=== PATIENT | female | born 1980 | race Caucasian/White ===

== ENCOUNTER 2017-11-23 09:11 | Inpatient (IN) ==
--- NOTE | 2017-11-23 09:43 | ED ---
History of Present Illness Primary Care Physician: Gustabo Aguero History of Present Illness: 37-year-old 2 para 0 EAB 1 at 39 weeks gestation who is a patient of Susy Doan and reports rupture membranes this morning at 6 AM. She has had increasing contractions since that time. She denies bleeding. She reports an uncomplicated course. She is GBS negative. Review of Systems All other systems reviewed negative except as stated in HPI PMFSH - Medical / Surgical Hx Neg / Unobtainable Medical Problems Denied: Yes - Surgical History Surgical History: Surgical History (Last Updated 11/23/17 @ 09:40 by Ford Zhou MD) H/O breast augmentation H/O dilation and curettage History of appendectomy Medications and Allergies Allergies Allergy/AdvReac Type Severity Reaction Status Date / Time No Known Allergies Allergy Uncoded 03/25/12 10:00 Exam Vital signs: Vital Signs 11/23/17 09:30 Pulse Rate 72 Blood Pressure 102/89 Narrative: GENERAL: Well-nourished, well-developed patient. SKIN: Warm and dry. HEAD: Normocephalic and atraumatic. EYES: No scleral icterus. No injection or drainage. ENT: No nasal drainage noted. Mucous membranes pink. Airway patent. NECK: Supple, trachea midline. No JVD. CARDIOVASCULAR: Regular rate and rhythm without murmurs, gallops, or rubs. RESPIRATORY: Breath sounds equal bilaterally. No accessory muscle use. ABDOMEN/GI: Abdomen soft, non-tender, bowel sounds present, no rebound, no guarding Gravid to [-] weeks size Fundal Height: [-] GENITOURINARY: External Genitalia: intact and normal in appearance BUS glands: [-] Cervix: [-] Dilatation: [-2] Effacement: [-100] Station: [-2-] Presentation: [Vertex-] Membranes: [ruptured] Uterine Contractions: [Every 2-3-] FHT's: Category: [2-] Baseline: [-] Reactive: [-] Variability: [Moderate] Decels: [Variable-] EXTREMITIES: No cyanosis or edema. BACK: Nontender without obvious deformity. No CVA tenderness. NEUROLOGICAL: Awake and alert. Motor and sensory grossly within normal limits. Five out of 5 muscle strength in all muscle groups. Normal speech. Assessment and Plan - Plan Assessment: Primigravida in early active labor, category 2 heart rate Plan: Admit for labor management Discharge Plan - Discharge Disposition Patient Disposition: 30 Still Patient - Discharge Condition Condition: Good - Physicians Team ED Provider: Ford Zhou Primary Care Provider: Gustabo Aguero - Rxs /Orders / Referrals /Forms Referrals: Gustabo Aguero MD [Primary Care Provider] - See Instructions - Discharge Instructions Print Language: Macedonian
[2017-11-23] MEDS ORDERED: fentaNYL Citrate Inj 100 MCG/2 ML Ampul IV.PUSH PRN ×2 (09:44)
[2017-11-23] MEDS ORDERED: Sod Chloride 0.9% Inj 1,000 ML IV.CONT PRN (09:44)
[2017-11-23] MEDS ORDERED: Naloxone Inj 0.4 MG/ML Vial IV.PUSH PRN ×2 (09:44→22:24)
[2017-11-23] MEDS ORDERED: Sodium Chlor 0.9% Inj 500 ML IV.SIG PRN (09:44)
[2017-11-23] MEDS ORDERED: Oxytocin 30 Units/500ml Premix 30 UNITS/500 ML BAG IV.SIG ONE (09:44)
[2017-11-23] MEDS ORDERED: Citric Acid/Sodium Citrate Liq 30 ML UDC PO SCH (09:45)
--- NOTE | 2017-11-23 09:49 | P.HPOB ---
Patient Name: Rudi Avery Date of : 84 Patient Status: Emergency Emergency Provider: Ford Zhou Date: 11/23/17 09:37 Initialization Date: 11/23/17 09:37 History of Present Illness Primary Care Physician: Gustabo Aguero History of Present Illness: 37-year-old 2 para 0 EAB 1 at 39 weeks gestation who is a patient of [facility] [place] and reports rupture membranes this morning at 6 AM. She has had increasing contractions since that time. She denies bleeding. She reports an uncomplicated course. She is GBS negative. Review of Systems All other systems reviewed negative except as stated in HPI PMFSH - Medical / Surgical Hx Neg / Unobtainable Medical Problems Denied: Yes - Surgical History Surgical History: Surgical History (Last Updated 11/23/17 @ 09:40 by Ford Zhou MD) H/O breast augmentation H/O dilation and curettage History of appendectomy Medications and Allergies Allergies Allergy/AdvReac Type Severity Reaction Status Date / Time No Known Allergies Allergy Uncoded 03/25/12 10:00 Exam Vital signs: Vital Signs 11/23/17 09:30 Pulse Rate 72 Blood Pressure 102/89 Narrative: GENERAL: Well-nourished, well-developed patient. SKIN: Warm and dry. HEAD: Normocephalic and atraumatic. EYES: No scleral icterus. No injection or drainage. ENT: No nasal drainage noted. Mucous membranes pink. Airway patent. NECK: Supple, trachea midline. No JVD. CARDIOVASCULAR: Regular rate and rhythm without murmurs, gallops, or rubs. RESPIRATORY: Breath sounds equal bilaterally. No accessory muscle use. ABDOMEN/GI: Abdomen soft, non-tender, bowel sounds present, no rebound, no guarding Gravid to [-] weeks size Fundal Height: [-] GENITOURINARY: External Genitalia: intact and normal in appearance BUS glands: [-] Cervix: [-] Dilatation: [-2] Effacement: [-100] Station: [-2-] Presentation: [Vertex-] Membranes: [ruptured] Uterine Contractions: [Every 2-3-] FHT's: Category: [2-] Baseline: [-] Reactive: [-] Variability: [Moderate] Decels: [Variable-] EXTREMITIES: No cyanosis or edema. BACK: Nontender without obvious deformity. No CVA tenderness. NEUROLOGICAL: Awake and alert. Motor and sensory grossly within normal limits. Five out of 5 muscle strength in all muscle groups. Normal speech. Assessment and Plan - Plan Assessment: Primigravida in early active labor, category 2 heart rate Plan: Admit for labor management Discharge Plan - Discharge Disposition Patient Disposition: 30 Still Patient - Discharge Condition Condition: Good - Physicians Team ED Provider: Ford Zhou Primary Care Provider: Gustabo Aguero - Rxs /Orders / Referrals /Forms Referrals: Gustabo Aguero MD [Primary Care Provider] - See Instructions - Discharge Instructions Print Language: Telugu
[2017-11-23 10:23] LABS: Baso % (Auto) 0.2 % (0.0-2.0); Eos % (Auto) 0.1 % (0.0-4.0); Hematocrit 37.1 % (35.0-46.0); Hemoglobin 13.1 gm/dL (11.6-15.3); Lymph # (Auto) 0.9 th/mm3 (1.0-4.8); Lymph % (Auto) 5.9 % (9.0-44.0); Mean Corpuscular HGB Conc 35.2 % (32.0-36.0); Mean Corpuscular Hemoglobin 32.1 pg (27.0-34.0); Mean Corpuscular Volume 91.2 fL (80.0-100.0); Mean Platelet Volume 9.6 fL (7.0-11.0); Mono # (Auto) 0.5 th/mm3 (0.0-0.9); Mono % (Auto) 3.3 % (0.0-8.0); Neut # (Auto) 13.7 th/mm3 (1.8-7.7); Neut % (Auto) 90.5 % (16.0-70.0); Platelet Count 277 th/mm3 (150-450); Red Blood Count 4.07 mil/mm3 (4.00-5.30); Red Cell Distribution Width 13.8 % (11.6-17.2); White Blood Count 15.1 th/mm3 (4.0-11.0)
[2017-11-23 10:27] LABS: Amphetamine Urine With Conf Neg (Neg); Benzodiazepine Urine With Conf Neg (Neg)
[2017-11-23 10:44] LABS: Bacteria,Urine Rare /hpf; Bilirubin,Urine Negative (Negative); Clarity,Urine Hazy (Clear); Color,Urine Yellow (Yellw/Straw); Glucose,Urine (UA) Negative (Negative); Leukocyte Esterase,Urine Negative (Negative); Mucus,Urine Few /lpf (Occasional); Nitrite,Urine Negative (Negative); Specific Gravity,Urine 1.024 (1.002-1.035); Squamous Epithelial Cell,Urine 2 /hpf (0-5)
[2017-11-23] MEDS ORDERED: fentaNYL 2MCG-Bupiv 0.125% Epi 150 ML EPIDURAL ONE (10:59)
[2017-11-23] MEDS ORDERED: fentaNYL 2MCG-Bupiv 0.125% Epi 150 ML EPIDURAL PRN (12:06)
[2017-11-23] MEDS ORDERED: fentaNYL Citrate Inj 100 MCG/2 ML Ampul EPIDURAL ONE (12:06)
[2017-11-23] MEDS ORDERED: Oxytocin 30 Units/500ml Premix 30 UNITS/500 ML BAG IV.SIG PRN (13:12)
[2017-11-23] MEDS ORDERED: Diphtheria/Tetanus/Pertussis Vaccine Inj 0.5 ML Syringe IM ONE (16:00)
[2017-11-23] MEDS ORDERED: Measles/Mumps/Rubella Vaccine Inj 0.5 ML Vial SQ ONE (16:00)
[2017-11-23] MEDS ORDERED: Lidocaine PF 1% Inj 30 ML Vial ONE (19:32)
[2017-11-23] MEDS ORDERED: Bisacodyl 10 MG Supp RECTAL PRN (22:24)
[2017-11-23] MEDS ORDERED: Witch Hazel 50%/Glyderin 12.5% 40 Pad Jar RECTAL PRN (22:24)
[2017-11-23] MEDS ORDERED: Benzocaine 20% Top Spray 60 ML Can TOPICAL PRN (22:24)
[2017-11-23] MEDS ORDERED: Zolpidem Tartrate 5 MG Tablet PO PRN (22:24)
--- NOTE | 2017-11-23 22:24 | P.OBDELI ---
Weeks Gestation: 39 Anesthesia: Epidural Episiotomy: midline Vaginal Delivery: Normal Presentation: Occiput anterior Nuchal Cord: None Delayed Cord Clamping (45 sec): Yes Placenta: Spontaneous delivery, Other (abnormally small placenta. 1/2 size of normal term placenta ) Laceration: 2 deg Repair: Chromic running Estimated blood loss (mL): 300 : Male (weight: 3045gr apgars: 9/9 time: 9.40pm), Single
[2017-11-23] MEDS ORDERED: Oxytocin 30 Units/500ml Premix 30 UNITS/500 ML BAG IV.CONT SCH (22:30)
[2017-11-24] MEDS: Ibuprofen 400 MG Tablet PO PRN ×3 (00:20→16:01)
[2017-11-24] MEDS: Senna/Docusate Sodium 8.6/50 MG Tablet PO SCH ×2 (08:21→21:20)
[2017-11-24] MEDS: Prenatal Vit/Ca/Iron/Folic Acid Tablet PO SCH (08:21)
--- NOTE | 2017-11-24 09:15 | P.PNOB ---
Subjective Interval history: Patient is a 37-year-old delivered at 39 weeks and 4 days. Patient is day 1 after . Patient's pain is well-controlled. Patient reports eating and drinking without any nausea or vomiting. Patient reports minimal bleeding. Patient has passed gas but no bowel movements. Patient is walking without lower extremity pain or shortness of breath. Patient is unsure about contraception. Objective Vital Signs/I&O: Vital Signs 11/23/17 09:30 11/23/17 09:45 11/23/17 10:05 Temperature 98.5 F Pulse Rate 72 80 84 Respiratory Rate 17 Blood Pressure 102/89 11/23/17 10:59 11/23/17 11:15 11/23/17 11:20 Temperature Pulse Rate 91 H 84 87 Respiratory Rate Blood Pressure 131/68 135/74 123/72 11/23/17 11:21 11/23/17 11:25 11/23/17 11:47 Temperature Pulse Rate 86 96 H Respiratory Rate 18 18 Blood Pressure 133/69 133/69 11/23/17 12:00 11/23/17 12:30 11/23/17 13:01 Temperature Pulse Rate 92 H 68 65 Respiratory Rate Blood Pressure 113/52 L 108/66 112/58 L 11/23/17 13:08 11/23/17 13:33 11/23/17 14:00 Temperature 98.6 F Pulse Rate 92 H 79 Respiratory Rate 18 18 18 Blood Pressure 110/63 151/67 H 11/23/17 14:31 11/23/17 15:00 11/23/17 15:10 Temperature Pulse Rate 75 89 Respiratory Rate 18 Blood Pressure 104/49 L 114/64 11/23/17 15:11 11/23/17 15:30 11/23/17 15:45 Temperature 98.8 F Pulse Rate 76 69 Respiratory Rate 18 Blood Pressure 119/64 109/59 L 11/23/17 16:15 11/23/17 17:00 11/23/17 17:15 Temperature Pulse Rate 93 H 108 H Respiratory Rate 18 18 Blood Pressure 119/81 120/55 L 11/23/17 17:30 11/23/17 17:45 11/23/17 18:00 Temperature 98.3 F Pulse Rate 113 H 95 H Respiratory Rate 18 Blood Pressure 116/43 L 112/61 11/23/17 18:30 11/23/17 19:00 11/23/17 19:15 Temperature Pulse Rate 105 H 111 H Respiratory Rate 18 Blood Pressure 117/67 120/59 L 11/23/17 19:30 11/23/17 20:00 11/23/17 20:36 Temperature 99.2 F Pulse Rate 78 Respiratory Rate 18 Blood Pressure 117/74 11/23/17 21:02 11/23/17 21:40 11/23/17 22:00 Temperature 98.5 F 98.9 F Pulse Rate 74 81 Respiratory Rate Blood Pressure 135/56 L 11/23/17 22:15 11/23/17 22:25 11/23/17 22:30 Temperature Pulse Rate 81 Respiratory Rate 16 18 Blood Pressure 117/62 11/23/17 22:45 11/23/17 23:00 11/23/17 23:01 Temperature Pulse Rate 88 89 Respiratory Rate 18 18 Blood Pressure 113/74 108/56 L 11/23/17 23:15 11/23/17 23:30 11/23/17 23:45 Temperature Pulse Rate 100 H 104 H Respiratory Rate 18 18 18 Blood Pressure 109/68 127/81 11/24/17 01:00 11/24/17 08:00 Temperature 99.2 F 98.3 F Pulse Rate 74 68 Respiratory Rate 18 16 Blood Pressure 118/70 102/55 L Intake & Output 11/23/17 11/24/17 11/24/17 18:59 06:59 18:59 Weight 70 kg Other: Weight On Admission 70 kg Result Diagrams: 11/23/17 09:55 Objective Remarks: GENERAL: Well-nourished, well-developed patient. CARDIOVASCULAR: Regular rate and rhythm without murmurs, gallops, or rubs. RESPIRATORY: Breath sounds equal bilaterally. No accessory muscle use. ABDOMEN/GI: Abdomen soft, non-tender. Fundus: Firm, non-tender at umbilicus. GENITOURINARY: Light to moderate bleeding. EXTREMITIES: No cyanosis or edema, non-tender, without signs of DVT. Medications and IVs: Active Medications Acetaminophen (Tylenol) 650 mg PO Q4H PRN PRN Reason: PAIN SCALE 1 TO 2 Al Hydroxide/Mg Hydroxide (Milk Of Magnesia Liq) 30 ml PO Q12H PRN PRN Reason: Mild Constipation Benzocaine (Americaine 20% Top [place]) 1 spray TOPICAL Q4H PRN PRN Reason: For Perineum Discomfort Last Admin: 11/24/17 02:47 Dose: 1 spray Bisacodyl (Dulcolax Supp) 10 mg RECTAL DAILY PRN PRN Reason: SEVERE CONSITIPATION Citric Acid/Sodium Citrate (Sodium Citrate/Citric Acid Liq) 30 ml PO [employer] [facility] Stop: 11/27/17 09:44 Ephedrine Sulfate (Ephedrine/Ns Syringe) 10 mg IV.PUSH UNSCH PRN PRN Reason: SEE LABEL COMMENTS Stop: 11/24/17 12:26 Fentanyl Citrate (Fentanyl Inj) 50 mcg IV.PUSH Q1H PRN PRN Reason: Pain Scale 3 - 5 Fentanyl Citrate (Fentanyl Inj) 100 mcg IV.PUSH Q1H PRN PRN Reason: PAIN SCALE 6 TO 10 Last Admin: 11/23/17 10:16 Dose: 100 mcg Lactated Ringer's (Lr 1000 Ml Inj) 1,000 mls @ 125 mls/hr IV.CONT .Q8H [facility] Last Admin: 11/23/17 13:31 Dose: 125 mls/hr Lactated Ringer's (Lr 1000 Ml Inj) 1,000 mls @ 3,000 mls/hr IV.SIG UNSCH PRN PRN Reason: compromise or epidural Sodium Chloride (Ns Inj) 500 mls @ 1,000 mls/hr IV.SIG UNSCH PRN PRN Reason: SEE LABEL COMMENTS Sodium Chloride (Ns Inj) 1,000 mls @ 100 mls/hr IV.CONT .Q10H PRN PRN Reason: SEE LABEL COMMENTS Fentanyl/Bupivacaine/Sodium Chlor (Fentanyl 2 Mcg-Bupiv 0.125% Epi) 150 mls @ 12 mls/hr EPIDURAL PRN PRN PRN Reason: for Labor Pain Oxytocin (Pitocin 30 Units/Ns 500 Ml Premix) 30 units in 500 mls @ 2 mls/hr IV.SIG TITRATE PRN; Protocol PRN Reason: For induction of labor Last Admin: 11/23/17 13:31 Dose: 2 milliunit/min, 2 mls/hr Lactulose (Lactulose Liq) 30 ml PO DAILY PRN PRN Reason: SEVERE CONSITIPATION Lidocaine HCl (Xylocaine 1% Inj) 0.1 ml I-DERMAL PRN PRN PRN Reason: For IV start Stop: 11/26/17 09:43 Lidocaine HCl (Xylocaine 1% Inj) 10 ml INFILTRATN PRN PRN PRN Reason: For episiotomy repair Stop: 11/25/17 09:43 Mineral Oil (Muri-Lube Oil) 10 ml TOPICAL PRN PRN PRN Reason: PRN perineal massage Miscellaneous Information (Misc Information) 1 each OTHER UNSCH PRN PRN Reason: SEE LABEL COMMENTS Stop: 11/24/17 12:26 Miscellaneous Information (Misc Information) 1 each OTHER UNSCH PRN PRN Reason: SEE LABEL COMMENTS Stop: 11/24/17 12:26 Naloxone HCl (Narcan Inj) 0.1 mg IV.PUSH Q2M PRN PRN Reason: for opiate reversal Naloxone HCl (Narcan Inj) 0.1 mg IV.PUSH Q2M PRN PRN Reason: for opiate reversal Ondansetron HCl (Zofran Odt) 4 mg PO Q6H PRN PRN Reason: NAUSEA OR VOMITING Oxycodone/Acetaminophen (Percocet 5/325 Mg) 1 tab PO Q4H PRN PRN Reason: PAIN SCALE 3 TO 5 Vit/Calcium/Iron/Folic Ac (Stuartnatal Plus 3) 1 tab PO DAILY [facility] Last Admin: 11/24/17 08:21 Dose: 1 tab Senna/Docusate Sodium (Poonam-Colace) 1 tab PO BID [facility] Last Admin: 11/24/17 08:21 Dose: 1 tab Sennosides (Senokot) 17.2 mg PO Q12H PRN PRN Reason: Moderate Constipation Sodium Chloride (Ns Flush) 2 ml IV.FLUSH PRN PRN PRN Reason: FLUSH AFTER USING IV ACCESS Sodium Chloride (Ns Flush) 2 ml IV.FLUSH BID [facility] Witch Hina/Glycerin (Tucks Pads) 1 applicatio RECTAL QID PRN PRN Reason: HEMORRHOIDS Last Admin: 11/24/17 02:46 Dose: 1 applicatio Zolpidem Tartrate (Ambien) 5 mg PO HS PRN PRN Reason: SLEEP Assessment and Plan - Plan Discharge Planning: Patient is a 37-year-old delivered at 39 weeks and 4 days. Patient is day 1 after . Patient was counseled to do 6 weeks of pelvic rest. Patient was counseled to follow up in 6 weeks. Patient requested follow-up and contraception. --AF VSS --Continue routine care --Motrin and Tylenol when necessary for pain --Encourage OOB --Pelvic rest for 6 weeks will need follow-up appointment at that time. --Contraception: Unsure at this time --Anticipate discharge tomorrow
[2017-11-24] MEDS: Acetaminophen 325 MG Tablet PO PRN ×3 (09:52→21:20)
[2017-11-25] MEDS: Ibuprofen 400 MG Tablet PO PRN (00:10)
[2017-11-25] MEDS: Acetaminophen 325 MG Tablet PO PRN (08:23)
[2017-11-25] MEDS: Prenatal Vit/Ca/Iron/Folic Acid Tablet PO SCH (08:23)
--- NOTE | 2017-11-25 08:55 | P.PNOB ---
Subjective Interval history: Patient is a 37-year-old delivered at 39 weeks and 4 days. Patient is day 2 after . Patient's pain is well-controlled. Patient reports eating and drinking without any nausea or vomiting. Patient reports minimal bleeding. Patient has passed gas but no bowel movements. Patient is walking without lower extremity pain or shortness of breath. Patient does not desire contraception. Objective Vital Signs/I&O: Vital Signs 11/24/17 20:00 11/25/17 08:00 Temperature 98.2 F 98.2 F Pulse Rate 80 62 Respiratory Rate 17 18 Blood Pressure 104/70 100/59 L Result Diagrams: 11/23/17 09:55 Objective Remarks: GENERAL: Well-nourished, well-developed patient. CARDIOVASCULAR: Regular rate and rhythm without murmurs, gallops, or rubs. RESPIRATORY: Breath sounds equal bilaterally. No accessory muscle use. ABDOMEN/GI: Abdomen soft, non-tender. Fundus: Firm, non-tender at umbilicus. GENITOURINARY: Light to moderate bleeding. EXTREMITIES: No cyanosis or edema, non-tender, without signs of DVT. Medications and IVs: Active Medications Acetaminophen (Tylenol) 650 mg PO Q4H PRN PRN Reason: PAIN SCALE 1 TO 2 Last Admin: 11/25/17 08:23 Dose: 650 mg Al Hydroxide/Mg Hydroxide (Milk Of Magnesia Liq) 30 ml PO Q12H PRN PRN Reason: Mild Constipation Benzocaine (Americaine 20% Top [place]) 1 spray TOPICAL Q4H PRN PRN Reason: For Perineum Discomfort Last Admin: 11/24/17 02:47 Dose: 1 spray Bisacodyl (Dulcolax Supp) 10 mg RECTAL DAILY PRN PRN Reason: SEVERE CONSITIPATION Fentanyl/Bupivacaine/Sodium Chlor (Fentanyl 2 Mcg-Bupiv 0.125% Epi) 150 mls @ 12 mls/hr EPIDURAL PRN PRN PRN Reason: for Labor Pain Oxytocin (Pitocin 30 Units/Ns 500 Ml Premix) 30 units in 500 mls @ 2 mls/hr IV.SIG TITRATE PRN; Protocol PRN Reason: For induction of labor Last Admin: 11/23/17 13:31 Dose: 2 milliunit/min, 2 mls/hr Lactulose (Lactulose Liq) 30 ml PO DAILY PRN PRN Reason: SEVERE CONSITIPATION Naloxone HCl (Narcan Inj) 0.1 mg IV.PUSH Q2M PRN PRN Reason: for opiate reversal Ondansetron HCl (Zofran Odt) 4 mg PO Q6H PRN PRN Reason: NAUSEA OR VOMITING Oxycodone/Acetaminophen (Percocet 5/325 Mg) 1 tab PO Q4H PRN PRN Reason: PAIN SCALE 3 TO 5 Vit/Calcium/Iron/Folic Ac (Stuartnatal Plus 3) 1 tab PO DAILY [facility] Last Admin: 11/25/17 08:23 Dose: 1 tab Senna/Docusate Sodium (Poonam-Colace) 1 tab PO BID [facility] Last Admin: 11/24/17 21:20 Dose: 1 tab Sennosides (Senokot) 17.2 mg PO Q12H PRN PRN Reason: Moderate Constipation Sodium Chloride (Ns Flush) 2 ml IV.FLUSH PRN PRN PRN Reason: FLUSH AFTER USING IV ACCESS Sodium Chloride (Ns Flush) 2 ml IV.FLUSH BID [facility] Witch Hina/Glycerin (Tucks Pads) 1 applicatio RECTAL QID PRN PRN Reason: HEMORRHOIDS Last Admin: 11/24/17 02:46 Dose: 1 applicatio Zolpidem Tartrate (Ambien) 5 mg PO HS PRN PRN Reason: SLEEP Assessment and Plan - Plan Discharge Planning: Patient is a 37-year-old delivered at 39 weeks and 4 days. Patient is day 2 after . Patient was counseled to do 6 weeks of pelvic rest. Patient was counseled to follow up in 6 weeks. --AF VSS --Continue routine care --Motrin and Tylenol when necessary for pain --Encourage OOB --Pelvic rest for 6 weeks will need follow-up appointment at that time. --Contraception: Does not desire --Anticipate discharge today
== END 2017-11-25 14:48 | disposition home or self-care (01) ==
LOC: HOBED 09:11 → H2E 09:51 → H1EA 11-24 00:52
PROVIDERS: ADMIT Obstetrics & Gynecology Maternal & Fetal Medicine; ATTEND Obstetrics & Gynecology Maternal & Fetal Medicine